=== PATIENT | male | born 1970 | race Hispanic/Latino ===

== ENCOUNTER 2016-07-16 10:57 | Observation (INO) | payer MEDICAID ==
[2016-07-16 11:03] VITALS: BMI 28.8
[2016-07-16] MEDS ORDERED: Sodium Chloride 0.9% 1,000 ML IV ONE (11:32)
[2016-07-16] MEDS ORDERED: Sodium Chloride 0.9% 1,000 ML ONE (11:46)
[2016-07-16 11:50] LABS: BASO # 0.1 K/uL (0.0-0.2); BASO % 1.1 % (0.0-2.0); EOS # 0.1 K/uL (0.0-0.7); EOS % 0.7 % (0.0-4.0); HEMATOCRIT 46.6 % (35.0-51.0); LYMPH # 1.4 K/uL (1.0-4.3); LYMPH % 18.4 % (20.0-40.0); MEAN CELL VOLUME 90.5 fL (80.0-94.0); MEAN CORPUSCULAR HEMOGLOBIN 30.5 pg (27.0-31.0); MEAN CORPUSCULAR HGB CONC 33.7 g/dL (33.0-37.0); MEAN PLATELET VOLUME 9.2 fL (7.2-11.7); MONO # 0.5 K/uL (0.0-0.8); NRBC % 0.1 % (0.0-2.0); RED CELL DISTRIBUTION WIDTH 12.6 % (11.5-14.5); WHITE BLOOD COUNT 7.6 K/uL (4.8-10.8)
[2016-07-16 11:55] LABS: RBC URINE < 1 /hpf (0-3); URINE BILIRUBIN NEGATIVE (NEGATIVE); URINE BLOOD NEGATIVE (NEGATIVE); URINE COLOR Straw (YELLOW); URINE GLUCOSE (UA) NORMAL (Normal); URINE KETONE NEGATIVE (NEGATIVE); URINE LEUKOCYTE ESTERASE NEG Leu/uL (Negative); URINE PROTEIN NEGATIVE (NEGATIVE); URINE UROBILINOGEN NORMAL mg/dL (0.2-1.0); WBC URINE < 1 /hpf (0-5)
[2016-07-16 11:59] LABS: CHLORIDE 102 mmol/L (98-107)
[2016-07-16 12:00] LABS: POTASSIUM 4.1 mmol/L (3.6-5.2); SODIUM 141 mmol/L (132-148)
[2016-07-16 12:02] LABS: ALB/GLOB RATIO 1.4 (1.0-2.1); ALKALINE PHOSPHATASE 60 U/L (38-126); AST/SGOT 42 U/L (17-59); BILIRUBIN,TOTAL 1.4 mg/dL (0.2-1.3); BLOOD UREA NITROGEN 17 mg/dL (9-20); CARBON DIOXIDE 24 mmol/L (22-30); GFR AFRICAN-AMERICAN > 60; TOTAL PROTEIN 7.7 g/dL (6.3-8.3)
[2016-07-16 12:03] LABS: ALT/SGPT 54 U/L (21-72); CALCIUM 9.3 mg/dl (8.6-10.4); GLUCOSE,RANDOM 123 mg/dL (75-110)
--- NOTE | 2016-07-16 12:06 | C.PDOC ---
History Of Present Illness 45 yr old male with PMhx of developmental disorder and umbilical hernia diagnosed 1 year ago, brought in by mom, presents to the ER with complaints of dry heaving with nausea and vomiting, intermittently for 1 month with diarrhea. Mom states last night the patient also had a tactile fever. Spoke to the patient GI doctor who has evaluated the patient in the past and was placed on protonix and numerous other stomach evaluation. Mom also reports the patient never had any imaging of his stomach done. Patient denies chest pain, SOB, headache, weakness or numbness. Time Seen by Provider: 07/16/16 10:59 Chief Complaint (Nursing): Abdominal Pain History Per: Patient, Family (Mom) History/Exam Limitations: no limitations Onset/Duration Of Symptoms: Days (1 month) Current Symptoms Are (Timing): Still Present Past Medical History Reviewed: Historical Data, Nursing Documentation, Vital Signs Vital Signs: Last Vital Signs Temp 97.9 F 07/16/16 15:13 Pulse 67 07/16/16 15:13 Resp 22 07/16/16 15:13 BP 124/87 07/16/16 15:13 Pulse Ox 98 07/16/16 18:27 - Medical History PMH: Asthma, Gastritis, Gall Bladder Disease, Hypothyroidism, Rheumatoid Arthritis (MOTHER NOT SURE) Surgical History: Cholecystectomy, Hernia Repair (inguinal) - [facility] Procedures ESOPHAGOGASTRODUODENOSCOPY [EGD] W/CLOSED BIOPSY (06/23/13) Family History: States: [place] (mother), CAD, Hypertension - Social History Hx Tobacco Use: No Hx Alcohol Use: No Hx Substance Use: No - Immunization History Hx Influenza Vaccination: Yes Hx Pneumococcal Vaccination: Yes Review Of Systems Except As Marked, All Systems Reviewed And Found Negative. Constitutional: Positive for: Fever (tactile) Cardiovascular: Negative for: Chest Pain Respiratory: Negative for: Shortness of Breath Gastrointestinal: Positive for: Nausea, Vomiting, Diarrhea Neurological: Negative for: Weakness, Numbness, Headache Physical Exam - Physical Exam Appears: Non-toxic, No Acute Distress Skin: Warm, Dry, No Rash Head: Atraumatic, Normacephalic Oral Mucosa: Dry Throat: Normal, No Erythema, No Exudate Neck: Normal, Normal ROM, Supple Chest: Symmetrical, No Tenderness Cardiovascular: Rhythm Regular, No Murmur Respiratory: Normal Breath Sounds, No Rales, No Rhonchi, No Wheezing Gastrointestinal/Abdominal: Normal Exam, Soft, No Tenderness, No Guarding, No Rebound Extremity: Normal ROM, No Swelling Neurological/Psych: Oriented x3, Normal Speech, Normal Motor, Other (Patient is calm and cooperative, answering questions appropriatly.) ED Course And Treatment - Laboratory Results Result Diagrams: 07/16/16 11:43 07/16/16 11:43 O2 Sat by Pulse Oximetry: 98 - CT Scan/US CT - Abd & Pelvis Other Rad Studies (CT/US): Read By Radiologist, Radiology Report Reviewed CT/US Interpretation: PROCEDURE: CT Abdomen and Pelvis with oral and IV contrast. HISTORY: diffuse abd pain, vomiting. COMPARISON: CT abdomen and pelvis with IV contrast performed 07/21/14. TECHNIQUE: Contiguous axial images of the abdomen and pelvis. Oral and IV contrast was administered. Coronal and Sagittal reformats generated and reviewed. This CT exam was performed using 1 or more of the following dose reduction techniques: Automated exposure control, adjustment of the MAA and/or kV according to patient size, and/or use of iterative reconstruction technique. Contrast dose: 100 mL Omnipaque 300. Radiation dose: Total exam DLP = 934.70 mGy-cm. FINDINGS: LOWER THORAX: No visible consolidation, pleural effusion, or pneumothorax. Small hiatal hernia. LIVER: Hypoattenuation of the liver compatible with hepatic steatosis. GALLBLADDER AND BILE DUCTS: Cholecystectomy. PANCREAS: Unremarkable. SPLEEN : Unremarkable. ADRENALS: Unremarkable. KIDNEYS AND URETERS: The kidneys enhance symmetrically. No hydronephrosis or obstructing renal calculus. BLADDER : The urinary bladder appears unremarkable. REPRODUCTIVE: Coarse calcifications noted within the prostate gland. APPENDIX: The appendix appears within normal limits of caliber. No secondary signs of acute appendicitis. BOWEL: The stomach is nondistended. The bowel loops appear within normal limits of caliber without evidence of intestinal obstruction. PERITONEUM: Mild mesenteric inflammatory stranding and sub cm scattered lymph nodes. No definite free air. LYMPH NODES: See above. VASCULATURE: No aortic aneurysm. BONES: Osseous demineralization. Degenerative changes. OTHER FINDINGS: Left inguinal hernia containing fluid and fat. Fat containing right inguinal hernia. Asymmetric prominence of vessels noted within the left pelvis adjacent and posterior to the urinary bladder near the seminal vesicles. IMPRESSION: Mild mesenteric inflammatory stranding and sub cm scattered lymph nodes. Mesenteric adenitis/panniculitis cannot be excluded. Left inguinal hernia containing fluid and fat. Fat containing right inguinal hernia. Hepatic steatosis. Asymmetric prominence of vessels noted within the left pelvis adjacent and posterior to the urinary bladder near the seminal vesicles. Additional incidental findings as above. Medical Decision Making Medical Decision Making: PLAN: * CT - Abd & Pelvis * CBC * Urinalysis * Zofran IVp * Sodium Chloride IV ED OBSERVATION Date of observation admission: 07/16/16 Time of observation admission: 12:20 - Observation admission statement Patient is being placed in observation because:: To order CT of abdomen and pelvis to r/o any acute pathology. - Goals of Observation Goals of observation are:: To monitor patient's response to treatment and give IV hydration. - Progress Note Progress Note: 07/16/16 13:30 Labs reviewed and are wnl. On re-evaluation, patient denies any nausea at this time. On exam, patient is laying in bed in no acute distress. On exam, lungs still clear to auscultation, cardiac RRR, abdomen still soft with no tenderness. CT still pending. 07/16/16 16:00 On second re-evaluation, patient's symptoms are much improved. Denies any nausea or abdominal pain. Exam is unchanged, patient is sitting up in bed comfortably in no acute distress. CT results discussed with the patient and the histologic aide. Sand Filler states that she feels comfortable with the patient going home and intends to f/u with his GI doctor. Advised to follow up with GI in 1-2 days without fail. Advised to give medication as prescribed. Return to the ER at any time for any new or worsening symptoms. Disposition - Disposition Disposition: HOME/ ROUTINE Disposition Time: 12:20 (Pt placed in Ed obs) Condition: IMPROVED - Clinical Impression Clinical Impression: Abdominal pain, Vomiting, Diarrhea, Dehydration - PA / SECURITY SYSTEMS INSTALLER / Resident Statement MD/DO has reviewed & agrees with the documentation as recorded. - Scribe Statement The provider has reviewed the documentation as recorded by the Berryibjose Ruelas All medical record entries made by the Berryibjose were at my direction and personally dictated by me. I have reviewed the chart and agree that the record accurately reflects my personal performance of the history, physical exam, medical decision making, and the department course for this patient. I have also personally directed, reviewed, and agree with the discharge instructions and disposition.
[2016-07-16] MEDS ORDERED: Iohexol 240 (50 ml) PO ONE (12:28)
[2016-07-16] MEDS ORDERED: Iohexol 240 (50 ml) ONE (13:26)
[2016-07-16] MEDS ORDERED: Iodixanol 320 MG/ML 100 ML BOTTLE IV ONE (14:18)
[2016-07-16 15:13] VITALS: BP 124/87; PULSE 67; RESP 22; TEMP 97.9
--- NOTE | 2016-07-16 15:26 | CT ---
PROCEDURE: CT Abdomen and Pelvis with oral and IV contrast. HISTORY: diffuse abd pain, vomiting COMPARISON: CT abdomen and pelvis with IV contrast performed 07/21/14 TECHNIQUE: Contiguous axial images of the abdomen and pelvis. Oral and IV contrast was administered. Coronal and Sagittal reformats generated and reviewed. This CT exam was performed using 1 or more of the following dose reduction techniques: Automated exposure control, adjustment of the MAA and/or kV according to patient size, and/or use of iterative reconstruction technique Contrast dose: 100 mL Omnipaque 300 Radiation dose: Total exam DLP = 934.70 mGy-cm. FINDINGS: LOWER THORAX: No visible consolidation, pleural effusion, or pneumothorax. Small hiatal hernia. LIVER: Hypoattenuation of the liver compatible with hepatic steatosis. GALLBLADDER AND BILE DUCTS: Cholecystectomy. PANCREAS: Unremarkable. SPLEEN: Unremarkable. ADRENALS: Unremarkable. KIDNEYS AND URETERS: The kidneys enhance symmetrically. No hydronephrosis or obstructing renal calculus. BLADDER: The urinary bladder appears unremarkable. REPRODUCTIVE: Coarse calcifications noted within the prostate gland. APPENDIX: The appendix appears within normal limits of caliber. No secondary signs of acute appendicitis. BOWEL: The stomach is nondistended. The bowel loops appear within normal limits of caliber without evidence of intestinal obstruction. PERITONEUM: Mild mesenteric inflammatory stranding and sub cm scattered lymph nodes. No definite free air. LYMPH NODES: See above. VASCULATURE: No aortic aneurysm. BONES: Osseous demineralization. Degenerative changes. OTHER FINDINGS: Left inguinal hernia containing fluid and fat. Fat containing right inguinal hernia. Asymmetric prominence of vessels noted within the left pelvis adjacent and posterior to the urinary bladder near the seminal vesicles. IMPRESSION: Mild mesenteric inflammatory stranding and sub cm scattered lymph nodes. Mesenteric adenitis/panniculitis cannot be excluded. Left inguinal hernia containing fluid and fat. Fat containing right inguinal hernia. Hepatic steatosis. Asymmetric prominence of vessels noted within the left pelvis adjacent and posterior to the urinary bladder near the seminal vesicles. Additional incidental findings as above.
[2016-07-16 15:30] VITALS: O2SAT 98
== END 2016-07-16 17:00 | disposition home or self-care (01) ==
LOC: C.ER 10:57 → C.9OBSV 12:20
PROVIDERS: ADMIT Emergency Medicine; ATTEND Emergency Medicine
DX: R10.10 Upper abdominal pain, unspecified (principal); R11.10 Vomiting, unspecified; R19.7 Diarrhea, unspecified; E86.0 Dehydration; E03.9 Hypothyroidism, unspecified
CPT/HCPCS: 74177; 80053; 81001; 83690; 85025; 87086; 96361; 96374; 96375; 99285; C9113; G0378; J1885; J2405; J7040; Q9966; Q9967

== ENCOUNTER 2017-08-01 14:11 | Emergency (ER) | payer MEDICAID ==
[2017-08-01 14:11] VITALS: BMI 24.2
[2017-08-01] MEDS ORDERED: Sodium Chloride 0.9% 1,000 ML IV ONE (14:52)
[2017-08-01] MEDS ORDERED: Sodium Chloride 0.9% 1,000 ML ONE (15:17)
[2017-08-01 15:53] LABS: ALB/GLOB RATIO 1.3 (1.0-2.1); ALBUMIN 4.2 g/dL (3.5-5.0); ALT/SGPT 80 U/L (21-72); AST/SGOT 65 U/L (17-59); BLOOD UREA NITROGEN 18 mg/dL (9-20); CALCIUM 9.5 mg/dl (8.6-10.4); GFR AFRICAN-AMERICAN > 60; GFR NON-AFRICAN AMERICAN > 60; LIPASE 16 U/L (23-300)
[2017-08-01 16:04] LABS: BASO % 0.5 % (0.0-2.0); EOS # 0.1 K/uL (0.0-0.7); EOS % 1.6 % (0.0-4.0); HEMOGLOBIN 15.5 g/dL (12.0-18.0); LYMPH # 1.6 K/uL (1.0-4.3); LYMPH % 22.8 % (20.0-40.0); MEAN CELL VOLUME 90.2 fL (80.0-94.0); MEAN CORPUSCULAR HEMOGLOBIN 31.5 pg (27.0-31.0); MEAN CORPUSCULAR HGB CONC 34.9 g/dL (33.0-37.0); MEAN PLATELET VOLUME 9.8 fL (7.2-11.7); MONO # 1.1 K/uL (0.0-0.8); MONO % 16.7 % (0.0-10.0); NEUT % 58.4 % (50.0-75.0); NRBC % 0.1 % (0.0-2.0); RBC 4.92 Mil/uL (4.40-5.90); RED CELL DISTRIBUTION WIDTH 12.9 % (11.5-14.5); WHITE BLOOD COUNT 6.8 K/uL (4.8-10.8)
--- NOTE | 2017-08-01 16:39 | C.PDOC ---
History Of Present Illness 46-year-old male, PMHx includes mental delay, presents to the emergency department accompanied by mother, with complaints of non-bloody/non-bilious vomiting and watery/non-bloody diarrhea x5 days. Patient denies any pain. Time Seen by Provider: 08/01/17 14:39 Chief Complaint (Nursing): Abdominal Pain History Per: Patient, Family History/Exam Limitations: no limitations Onset/Duration Of Symptoms: Days Current Symptoms Are (Timing): Still Present Past Medical History Reviewed: Historical Data, Nursing Documentation, Vital Signs Vital Signs: Last Vital Signs Temp 97.4 F L 08/01/17 14:24 Pulse 104 H 08/01/17 14:24 Resp 22 08/01/17 14:24 BP 133/94 H 08/01/17 14:24 Pulse Ox 97 08/01/17 17:14 - Medical History PMH: Asthma, Gastritis, Gall Bladder Disease, Hypothyroidism, Rheumatoid Arthritis (MOTHER NOT SURE) Denies: Chronic Kidney Disease Surgical History: Cholecystectomy, Hernia Repair (inguinal) - [facility] Procedures ESOPHAGOGASTRODUODENOSCOPY [EGD] W/CLOSED BIOPSY (06/23/13) Family History: States: [place] (mother), CAD, Hypertension - Social History Hx Tobacco Use: No Hx Alcohol Use: No Hx Substance Use: No - Immunization History Hx Tetanus Toxoid Vaccination: No Hx Influenza Vaccination: Yes Hx Pneumococcal Vaccination: Yes Review Of Systems Constitutional: Negative for: Fever Cardiovascular: Negative for: Chest Pain Gastrointestinal: Positive for: Vomiting, Diarrhea. Negative for: Abdominal Pain Musculoskeletal: Negative for: Back Pain Physical Exam - Physical Exam Appears: Non-toxic, No Acute Distress Skin: Normal Color, Warm, Dry, No Rash Head: Normacephalic Eye(s): bilateral: PERRL Nose: Normal Oral Mucosa: Moist Lips: Normal Appearing Neck: Normal ROM Cardiovascular: Rhythm Regular, No Murmur Respiratory: Normal Breath Sounds, No Accessory Muscle Use Gastrointestinal/Abdominal: Soft, No Tenderness Extremity: Normal ROM, No Deformity, No Swelling Neurological/Psych: Other (awake and alert) ED Course And Treatment - Laboratory Results Result Diagrams: 08/01/17 15:33 08/01/17 15:33 O2 Sat by Pulse Oximetry: 97 (RA) Pulse Ox Interpretation: Normal - CT Scan/US CT abd/;pel Other Rad Studies (CT/US): Read By Radiologist, Radiology Report Reviewed CT/US Interpretation: Accession No. : [id number]. Patient Name / ID : ZOEY PIZANO / [id number]. Exam Date : 08/01/2017 15:44:45 ( Approved ). Study Comment : Sex / Age : M / 46Y. Creator : Lizbet Magdaleno. Dictator : Public Health Technician : Butcher Scullion : Brian Sotelo MD. Approver2 : Report Date : 08/01/2017 16:21:50. My Comment : . PROCEDURE: CT scan abdomen and pelvis dated 08/01/2017. HISTORY: Abdominal pain. COMPARISON: Comparison made with prior CT scan abdomen pelvis dated 07/16/2016. . TECHNIQUE: Contiguous axial images of the abdomen and pelvis. Oral contrast was administered. No IV contrast given. Coronal and Sagittal reformats generated. Radiation dose: Total exam DLP = 1216.62. This CT exam was performed using one or more of the following dose reduction techniques: Automated exposure control, adjustment of the mA and/or kV according to patient size, and/or use of iterative reconstruction technique. . FINDINGS: LOWER THORAX: No evidence of focal consolidation. There appears to be some minor linear atelectasis or scarring the left lung base/lingular region. There may also be some minor scarring in the middle lobe. . There is a small hiatal hernia. Heart size within range of normal. No significant pericardial effusion. LIVER: The unenhanced liver exhibits normal size. Liver exhibits mild low-attenuation on consistent with fatty infiltration. No obvious hepatic mass or collection seen on this noncontrast exam. No gross intrahepatic biliary ductal dilatation. GALLBLADDER AND BILE DUCTS: Cholecystectomy. PANCREAS: Unremarkable. No mass. No ductal dilatation. SPLEEN: Unremarkable. No splenomegaly. ADRENALS: Slightly nodular appearing left adrenal gland. KIDNEYS AND URETERS: Kidneys demonstrate relatively symmetric size. No evidence of nephrolithiasis or hydronephrosis. BLADDER: Urinary bladder is physiologically distended. No evidence of intraluminal urinary bladder calculi. REPRODUCTIVE: Unremarkable as visualized. APPENDIX: Normal-appearing appendix. BOWEL: Evaluation of the bowel is limited due to the lack of oral contrast material. The stomach is incompletely distended. Visualized loops of small bowel exhibit normal contour and caliber. No evidence acute mechanical small bowel obstruction. Stool and air seen throughout the large bowel. No definitive abnormal mural wall thickening. The. PERITONEUM: Note is made of mild nonspecific infiltration changes within the upper abdominal mesentery -nonspecific. Rule out rita mesentery which includes among other possibilities a panniculitis. There are also multiple small nonspecific mesenteric lymph nodes suggesting mesenteric adenitis. . No free or loculated fluid collections. No free intraperitoneal air. There are small fat containing umbilical and paraumbilical hernias. LYMPH NODES: Multiple small nonspecific mesenteric lymph nodes as indicated above suggesting mesenteric adenitis. VASCULATURE: Unremarkable. No aortic aneurysm. BONES: Mild multilevel degenerative spondylosis of the visualized lower thoracic jump the the the and lumbar spine. OTHER FINDINGS: None. IMPRESSION: Mild infiltration changes seen within the upper abdominal mesentery - nonspecific. Findings may represent rita mesentery which includes among other possibilities panniculitis and/or fat necrosis. There are multiple small mesenteric lymph nodes also seen suggesting mesenteric adenitis. Status post cholecystectomy. Fatty hepatic infiltration. Slightly nodular appearing left adrenal gland. Medical Decision Making Medical Decision Making: Plan: * Bloodwork * CT Abd/Pel * Pepcid, Protonix, IVFs, Zofran * Reassess and Disposition Patient is feeling better, abdomen is soft and non-tender on re-evaluation. Will be discharged for outpatient f.u with PMD. Disposition Counseled Patient/Family Regarding: Studies Performed, Diagnosis, Need For Followup, Rx Given - Disposition Referrals: Shaik Ram MD [Staff Provider] - Disposition: HOME/ ROUTINE Disposition Time: 17:07 Condition: IMPROVED Additional Instructions: follow up with clinic in 2 days call to make an appointment take medications as prescribed return to ER if symptoms worsens or progress Prescriptions: Atropine/Diphenoxylate [Lonox 0.025 MG-2.5 MG] 1 tab PO TID PRN #12 tab PRN Reason: Diarrhea Ondansetron ODT [Zofran ODT] 4 mg PO TID PRN #12 odt PRN Reason: Nausea/Vomiting Instructions: Diarrhea in Adolescents and Adults, Nausea and Vomiting, Adult ( DC) Forms: [facility] (Egyptian), General Discharge Instructions - Clinical Impression Clinical Impression: Vomiting, Diarrhea - Scribe Statement The provider has reviewed the documentation as recorded by the Scribe (Laurie Park) All medical record entries made by the Scribe were at my direction and personally dictated by me. I have reviewed the chart and agree that the record accurately reflects my personal performance of the history, physical exam, medical decision making, and the department course for this patient. I have also personally directed, reviewed, and agree with the discharge instructions and disposition.
--- NOTE | 2017-08-01 17:03 | CT ---
PROCEDURE: CT scan abdomen and pelvis dated 08/01/2017. HISTORY: Abdominal pain. COMPARISON: Comparison made with prior CT scan abdomen pelvis dated 07/16/2016. . TECHNIQUE: Contiguous axial images of the abdomen and pelvis. Oral contrast was administered. No IV contrast given. Coronal and Sagittal reformats generated. Radiation dose: Total exam DLP = 1216.[address] exam was performed using one or more of the following dose reduction techniques: Automated exposure control, adjustment of the mA and/or kV according to patient size, and/or use of iterative reconstruction technique. . FINDINGS: LOWER THORAX: No evidence of focal consolidation. There appears to be some minor linear atelectasis or scarring the left lung base/lingular region. There may also be some minor scarring in the middle lobe. . There is a small hiatal hernia. Heart size within range of normal. No significant pericardial effusion. LIVER: The unenhanced liver exhibits normal size. Liver exhibits mild low-attenuation on consistent with fatty infiltration. No obvious hepatic mass or collection seen on this noncontrast exam. No gross intrahepatic biliary ductal dilatation. GALLBLADDER AND BILE DUCTS: Cholecystectomy. PANCREAS: Unremarkable. No mass. No ductal dilatation. SPLEEN: Unremarkable. No splenomegaly. ADRENALS: Slightly nodular appearing left adrenal gland. KIDNEYS AND URETERS: Kidneys demonstrate relatively symmetric size. No evidence of nephrolithiasis or hydronephrosis. BLADDER: Urinary bladder is physiologically distended. No evidence of intraluminal urinary bladder calculi. REPRODUCTIVE: Unremarkable as visualized. APPENDIX: Normal-appearing appendix. BOWEL: Evaluation of the bowel is limited due to the lack of oral contrast material. The stomach is incompletely distended. Visualized loops of small bowel exhibit normal contour and caliber. No evidence acute mechanical small bowel obstruction. Stool and air seen throughout the large bowel. No definitive abnormal mural wall thickening. The PERITONEUM: Note is made of mild nonspecific infiltration changes within the upper abdominal mesentery -nonspecific. Rule out rita mesentery which includes among other possibilities a panniculitis. There are also multiple small nonspecific mesenteric lymph nodes suggesting mesenteric adenitis. . No free or loculated fluid collections. No free intraperitoneal air. There are small fat containing umbilical and paraumbilical hernias. LYMPH NODES: Multiple small nonspecific mesenteric lymph nodes as indicated above suggesting mesenteric adenitis VASCULATURE: Unremarkable. No aortic aneurysm. BONES: Mild multilevel degenerative spondylosis of the visualized lower thoracic jump the the the and lumbar spine OTHER FINDINGS: None. IMPRESSION: Mild infiltration changes seen within the upper abdominal mesentery - nonspecific. Findings may represent rita mesentery which includes among other possibilities panniculitis and/or fat necrosis. There are multiple small mesenteric lymph nodes also seen suggesting mesenteric adenitis. Status post cholecystectomy. Fatty hepatic infiltration. Slightly nodular appearing left adrenal gland.
[2017-08-01 17:19] VITALS: BP 122/70; PULSE 92; RESP 16; TEMP 98.2; O2SAT 98
== END 2017-08-01 17:18 | disposition home or self-care (01) ==
LOC: C.ER 14:11
DX: R11.10 Vomiting, unspecified (principal); R19.7 Diarrhea, unspecified
CPT/HCPCS: 74176; 80053; 83690; 85025; 96361; 96374; 96375; 99284; C9113; J2405; J7040